=== PATIENT | male | born 1945 | race Caucasian/White ===

== ENCOUNTER 2024-10-07 02:11 | Emergency (ER) | payer OTHER ==
[~2024-10-07] VITALS: Ht 185.4 cm; Wt 77.0 kg
[2024-10-07 02:23] VITALS: BP 79/31; PULSE 79; RESP 31; O2SAT 95
== END 2024-10-07 02:25 ==
LOC: ER 02:11
DX: I46.9 Cardiac arrest, cause unspecified (principal); R62.7 Adult failure to thrive; Z88.1 Allergy status to other antibiotic agents; I49.01 Ventricular fibrillation; J44.9 Chronic obstructive pulmonary disease, unspecified; Z85.118 Personal history of other malignant neoplasm of bronchus and lung
CPT/HCPCS: 31500; 82962; 92950; 93005; 99291